=== PATIENT | female | born 1990 | race African-American/Black ===

== ENCOUNTER 2018-12-07 20:20 | Inpatient (IN) ==
[2018-12-07] MEDS ORDERED: LACTATED RINGERS 500 ML IV PRN (21:52)
[2018-12-07] MEDS ORDERED: MEPERIDINE 50 MG/1 ML VIAL IV PRN (21:52)
[2018-12-07] MEDS ORDERED: ONDANSETRON 4 MG/2 ML VIAL IV PRN (21:52)
[2018-12-07] MEDS ORDERED: BUTORPHANOL 2 MG/ML VIAL IV PRN (21:52)
[2018-12-07] MEDS ORDERED: AMPICILLIN INJ 2,000 MG in SODIUM CHLORIDE 0.9% 100 ML IV ONE (22:01)
[2018-12-07] MEDS ORDERED: FAMOTIDINE 20 MG/2 ML VIAL IV PRN (22:04)
[2018-12-07] MEDS ORDERED: CITRIC ACID/SODIUM CITRATE 30 ML UDCUP PO PRN (22:04)
[2018-12-07] MEDS ORDERED: ePHEDrine 50 MG/ML AMP IV PRN (22:05)
[2018-12-07 22:28] LABS: Basophils % 0.3 % (0.0-0.8); Eosinophils % 0.4 % (0.00-10.9); Hematocrit 36.4 VOL% (35.7-47.0); Hemoglobin 11.6 GM/DL (12.0-16.0); Immature Granulocytes % 0.3 %; Immature Granulocytes Absolute 0.02 #; Lymphocytes # 1.7 10*3/uL (1.4-4.0); Mean Corpuscular HGB Conc 31.9 GM/DL (32-36); Mean Corpuscular Hemoglobin 28 PG (27-34); Mean Corpuscular Volume 87.3 FL (87-102); Mean Platelet Volume 11.9 FL (9.6-12.0); Monocytes # 0.5 10*3/uL (0.11-0.8); Monocytes % 6.8 % (1.7-12.7); Neutrophils # 4.9 10*3/uL (1.4-7.4); Neutrophils % 68.2 % (38.7-73.9); Platelet Count 210 T/CUMM (130-400); Red Blood Count 4.17 MC/CUMM (3.8-5.5); Red Cell Distribution Width 18.3 % (9.3-17.3); White Blood Count 7.2 T/CUMM (4-12)
[2018-12-07] MEDS: LACTATED RINGERS 1,000 ML IV SCH (22:33)
[2018-12-07 22:59] LABS: Albumin 2.5 G/DL (3.4-5.0); Bilirubin,Total 0.4 MG/DL (0.2-1.0); Calcium 9.4 MG/DL (8.5-10.1); Osmolality,Calculated 272.7 MOS/KG (273-304); Potassium 3.9 MMOL/L (3.5-5.1); Total Protein 7.2 G/DL (6.4-8.3)
[2018-12-08] MEDS ORDERED: fentaNYL 2 MCG/ROPIV 0.2% EPID 100 ML EPIDURAL SCH (00:30)
[2018-12-08] MEDS: LACTATED RINGERS 1,000 ML IV SCH (01:01)
[2018-12-08] MEDS ORDERED: METHYLERGONOVINE 0.2 MG/1 ML AMP ONE (02:33)
[2018-12-08] MEDS ORDERED: miSOPROStol 200 MCG TABLET ONE (02:33)
[2018-12-08] MEDS ORDERED: OXYTOCIN/LR 20 UNIT/1,000 ML BAG IV ONE ×2 (02:33→03:54)
[2018-12-08] MEDS ORDERED: LIDOCAINE 1% 50 ML VIAL ONE (02:34)
[2018-12-08 02:40] LABS: Apearance,Urine CLEAR (Clear); Bilirubin,Urine Negative (Negative); Blood, Urine Negative (Negative); Glucose,Urine (UA) Negative (Negative); Ketones,Urine 20 mg/dL (Negative); Mucus,Urine Occasional /LPF (Occasional); Nitrite,Urine Negative (Negative); Protein,Urine Negative; Squamous Epithelial Cell,Urine Occasional /HPF (0-10); Urine Color Yellow (Yellow); Urine Specific Gravity 1.024 (1.001-1.035); Urine Urobilinogen < 2.0 EU/DL (0.2-1.0); WBC,Urine 1 /HPF (0-6)
[2018-12-08] MEDS ORDERED: AMPICILLIN INJ 1,000 MG in SODIUM CHLORIDE 0.9% 100 ML IV SCH (03:00)
[2018-12-08] MEDS ORDERED: MAGNESIUM HYDROXIDE SUSP 30 ML UDCUP PO PRN (03:31)
[2018-12-08] MEDS ORDERED: BISACODYL 10 MG SUPP RECTAL PRN (03:31)
[2018-12-08] MEDS ORDERED: ACETAMINOPHEN 325 MG TABLET PO PRN (03:31)
[2018-12-08] MEDS ORDERED: ONDANSETRON 4 MG/2 ML VIAL IV PRN (03:31)
[2018-12-08] MEDS ORDERED: LACTATED RINGERS 1,000 ML IV SCH (04:00)
[2018-12-08 05:13] LABS: Basophils % 0.1 % (0.0-0.8); Eosinophils % 0.1 % (0.00-10.9); Hematocrit 32.5 VOL% (35.7-47.0); Hemoglobin 10.1 GM/DL (12.0-16.0); Immature Granulocytes % 0.2 %; Immature Granulocytes Absolute 0.02 #; Lymphocytes # 1.2 10*3/uL (1.4-4.0); Lymphocytes % 12.6 % (21.3-54.2); Mean Corpuscular HGB Conc 31.1 GM/DL (32-36); Mean Corpuscular Hemoglobin 28 PG (27-34); Mean Corpuscular Volume 88.8 FL (87-102); Mean Platelet Volume 11.6 FL (9.6-12.0); Monocytes # 0.4 10*3/uL (0.11-0.8); Monocytes % 4.3 % (1.7-12.7); Neutrophils # 8.1 10*3/uL (1.4-7.4); Neutrophils % 82.7 % (38.7-73.9); Platelet Count 191 T/CUMM (130-400); Red Blood Count 3.66 MC/CUMM (3.8-5.5); Red Cell Distribution Width 18.4 % (9.3-17.3); White Blood Count 9.7 T/CUMM (4-12)
[2018-12-08] MEDS ORDERED: OXYTOCIN/LR 20 UNIT/1,000 ML BAG IV SCH (06:00)
[2018-12-08] MEDS: IBUPROFEN 800 MG TABLET PO PRN ×2 (06:04→21:21)
[2018-12-08] MEDS ORDERED: VALACYCLOVIR 500 MG PO SCH (09:00)
[2018-12-08] MEDS: DOCUSATE SODIUM 100 MG CAPSULE PO SCH ×2 (09:14→21:21)
[2018-12-08] MEDS: MULTIVITAMIN (PRENATAL) TABLET PO SCH (09:14)
[2018-12-09 05:18] LABS: Basophils % 0.4 % (0.0-0.8); Eosinophils # 0.1 10*3/uL (0.0-0.87); Hematocrit 31.1 VOL% (35.7-47.0); Hemoglobin 9.6 GM/DL (12.0-16.0); Immature Granulocytes % 0.5 %; Immature Granulocytes Absolute 0.04 #; Lymphocytes # 2.4 10*3/uL (1.4-4.0); Mean Corpuscular HGB Conc 30.9 GM/DL (32-36); Mean Corpuscular Hemoglobin 27 PG (27-34); Mean Corpuscular Volume 88.6 FL (87-102); Monocytes # 0.5 10*3/uL (0.11-0.8); Monocytes % 5.9 % (1.7-12.7); Neutrophils # 5.2 10*3/uL (1.4-7.4); Neutrophils % 63.2 % (38.7-73.9); Platelet Count 193 T/CUMM (130-400); Red Blood Count 3.51 MC/CUMM (3.8-5.5); Red Cell Distribution Width 18.4 % (9.3-17.3); White Blood Count 8.3 T/CUMM (4-12)
[2018-12-09] MEDS: IBUPROFEN 800 MG TABLET PO PRN (08:00)
[2018-12-09] MEDS: DOCUSATE SODIUM 100 MG CAPSULE PO SCH ×2 (08:00→21:02)
[2018-12-09] MEDS: MULTIVITAMIN (PRENATAL) TABLET PO SCH (08:00)
[2018-12-10 07:12] VITALS: BP 110/78
[2018-12-10] MEDS: MULTIVITAMIN (PRENATAL) TABLET PO SCH (09:37)
[2018-12-10] MEDS: DOCUSATE SODIUM 100 MG CAPSULE PO SCH (09:37)
== END 2018-12-10 11:30 | disposition home or self-care (01) | DRG 560 ==
LOC: N.LDOUT 20:20 → N.LD 20:22 → N.OB 12-08 08:40
PROVIDERS: ADMIT Obstetrics & Gynecology; ATTEND Obstetrics & Gynecology